=== PATIENT | female | born 1990 | race Caucasian/White ===

== ENCOUNTER 2017-05-30 18:08 | Emergency (ER) | payer MEDICAID ==
[~2017-05-30] VITALS: Ht 152.4 cm; Wt 61.0 kg
[~2017-05-30 18:08] MED LIST: CEPH-569 PO; DOCU-138 PO
[2017-05-31] MEDS ORDERED: MAGNESIUM CITRATE 300ML SOLUTION PO ONE (02:15)
[2017-05-31 02:58] LABS: BASOPHILS % 0.5 % (0.0-2.0); EOSINOPHILS % 0.2 % (0.0-5.0); HEMATOCRIT. 38.3 % (36.0-48.0); HEMOGLOBIN. 13.4 g/dL (12.0-16.0); LYMPHOCYTES % 19.6 % (20.0-50.0); MEAN CORPUSCULAR HEMOGLOBIN 35.5 pg (28.0-32.0); MEAN CORPUSCULAR VOLUME 101.6 fL (81.0-99.0); MEAN PLATELET VOLUME 8.1 fl (7.4-10.4); MONOCYTES % 4.3 % (2.0-8.0); NEUTROPHILS % 75.4 % (40.0-76.0); PLATELET 307 x1000/uL (130-400); RED BLOOD CELL COUNT 3.77 mill/uL (4.2-5.4); RED CELL DISTRIBUTION WIDTH 12.8 % (11.6-14.6)
[2017-05-31 03:06] LABS: PROTHROMBIN TIME 10.7 sec (9.4-11.6)
[2017-05-31 03:16] LABS: CARBON DIOXIDE 25 mEq/L (21-32); CHLORIDE 105 mEq/L (98-107)
[2017-05-31 04:35] VITALS: BP 116/80
== END 2017-05-31 04:38 | disposition home or self-care (01) ==
LOC: ER 20:59
DX: K59.04 Chronic idiopathic constipation (principal); Q90.9 Down syndrome, unspecified
CPT/HCPCS: 36415; 74000; 80053; 81025; 83690; 85025; 85610; 99285; Z7610